=== PATIENT | female | born 1980 | race Two or more races ===

== ENCOUNTER 2018-05-01 11:09 | Emergency (ER) | payer OTHER ==
[~2018-05-01] VITALS: Ht 154.9 cm; Wt 64.4 kg
[~2018-05-01 11:09] MED LIST: DAYQUIL; FEXO30TA; LORA10TA19
[2018-05-01 11:33] VITALS: BP 104/67
--- NOTE | 2018-05-01 11:37 | NUR ---
PT AMBULATES TO BED 11, REPORT GIVEN TO RAZIA MCKEON
--- NOTE | 2018-05-01 11:40 | NUR ---
C/O LT WRIST PAIN X 2 1/2 WKS S/P INJURED AT THE GYM. - SWELLING; CAP REFILL <3 SEC ON LEFT THUMB. VSS; PATIENT POSITIONED FOR COMFORT; HOB ELEVATED; BEDRAILS UP X1; BED DOWN. ER MD MADE AWARE OF PT STATUS.
--- NOTE | 2018-05-01 11:42 | NUR ---
XRAY AT BEDSIDE
[2018-05-01 11:59] VITALS: BP 104/67
== END 2018-05-01 11:55 | disposition home or self-care (01) ==
LOC: MED 11:09
DX: M67.834 Other specified disorders of tendon, left wrist (principal); Z79.899 Other long term (current) drug therapy
CPT/HCPCS: 73110; 99284; Q0092

== ENCOUNTER 2019-01-05 11:29 | Outpatient (CLI) | payer OTHER ==
[2019-01-05 12:19] LABS: FREE T4 (FREE THYROXINE) 1.25 ng/dL (0.76-1.46); THYROID STIMULATING HORMONE 3.74 uIU/mL (0.34-3.74)
== END 2019-01-05 21:08 | disposition home or self-care (01) ==
LOC: MLB 11:29
DX: E03.9 Hypothyroidism, unspecified (principal)
CPT/HCPCS: 36415; 84439; 84443; 84481

== ENCOUNTER 2019-02-06 12:03 | Outpatient (CLI) | payer OTHER ==
[2019-02-06 12:26] LABS: BASOPHILS % (AUTO) 0.6 % (0.0-2.0); EOSINOPHILS # (AUTO) 0.1 K/uL (0-0.4); EOSINOPHILS % (AUTO) 2.4 % (0.0-4.0); HEMATOCRIT 37.6 % (36-48); HEMOGLOBIN 12.5 g/dL (12.0-16.0); LYMPHOCYTES # (AUTO) 2.3 K/uL (2.5-16.5); LYMPHOCYTES % (AUTO) 52.5 % (20.5-51.1); MEAN CORPUSCULAR HEMOGLOBIN 27 pg (27-31); MEAN CORPUSCULAR HGB CONC 33 g/dL (33-37); MEAN CORPUSCULAR VOLUME 81.2 fL (80-94); MONOCYTES # (AUTO) 0.4 K/uL (0.8-1.0); MONOCYTES % (AUTO) 9.5 % (1.7-9.3); NEUTROPHILS # (AUTO) 1.5 K/uL (1.8-7.7); PLATELET COUNT (AUTO) 249 K/uL (140-450); RED BLOOD CELL COUNT(AUTO) 4.64 MIL/uL (4.20-5.40); RED CELL DISTRIBUTION WIDTH 15.2 % (11.6-13.7); WHITE BLOOD COUNT (AUTO) 4.3 K/uL (4.8-10.8)
[2019-02-06 12:47] LABS: THYROID STIMULATING HORMONE 2.07 uIU/mL (0.34-3.74)
[2019-02-07 09:12] LABS: ESTRADIOL SERUM 42.1 pg/mL (.); FOLLICLE STIMULATING HORMONE 6.1 mIU/mL (.); LUTEINIZING HORMONE 18.8 mIU/mL (.); PROLACTIN 10.6 ng/mL (4.8-23.3)
== END 2019-02-06 22:39 | disposition home or self-care (01) ==
LOC: MLB 12:03
DX: E28.2 Polycystic ovarian syndrome (principal); E03.9 Hypothyroidism, unspecified
CPT/HCPCS: 36415; 76536; 80061; 82533; 82670; 83001; 83002; 83036; 83498; 83516; 83525; 84144; 84146; 84403; 84443; 85025; Q0092

== ENCOUNTER 2019-02-24 14:08 | Outpatient (CLI) | payer OTHER | END 2019-02-24 20:12 | disposition home or self-care (01) | LOC: MUS 14:08 | DX: E28.2 Polycystic ovarian syndrome (principal) | CPT/HCPCS: 76856; Q0092 ==

== ENCOUNTER 2019-05-07 12:17 | Outpatient (CLI) | payer OTHER ==
[2019-05-07 13:10] LABS: ALBUMIN 3.9 g/dL (3.4-5.0); ANION GAP 14.9 (8-16); CARBON DIOXIDE 25.8 mmol/L (21-32); CREATININE 0.8 mg/dL (0.6-1.3); FREE T4 (FREE THYROXINE) 1.27 ng/dL (0.76-1.46); POTASSIUM 3.7 mmol/L (3.5-5.1); THYROID STIMULATING HORMONE 1.2 uIU/mL (0.34-3.74); TOTAL BILIRUBIN 0.3 mg/dL (0.0-1.0)
[2019-05-08 09:08] LABS: THYROID PEROXIDASE (TPO) AB 63 IU/mL (0-34); TRIIODOTHYRONINE 90 ng/dL (71-180)
== END 2019-05-07 17:10 | disposition home or self-care (01) ==
LOC: MLB 12:17
DX: E04.2 Nontoxic multinodular goiter (principal); E06.3 Autoimmune thyroiditis
CPT/HCPCS: 36415; 80053; 84439; 84443; 84480; 86376; 86800

== ENCOUNTER 2019-08-05 16:00 | Outpatient (CLI) | payer OTHER | END 2019-08-05 19:52 | disposition home or self-care (01) | LOC: MLB 16:00 | DX: E07.9 Disorder of thyroid, unspecified (principal) | CPT/HCPCS: 36415; 86800 ==

== ENCOUNTER 2019-09-10 11:10 | Outpatient (CLI) | payer OTHER ==
[2019-09-10 12:06] LABS: BASOPHILS % (AUTO) 0.9 % (0.0-2.0); EOSINOPHILS # (AUTO) 0.1 K/uL (0-0.4); EOSINOPHILS % (AUTO) 2.5 % (0.0-4.0); HEMATOCRIT 39.6 % (36-48); LYMPHOCYTES # (AUTO) 1.2 K/uL (2.5-16.5); LYMPHOCYTES % (AUTO) 27.7 % (20.5-51.1); MEAN CORPUSCULAR HEMOGLOBIN 27 pg (27-31); MEAN CORPUSCULAR HGB CONC 33 g/dL (33-37); MEAN CORPUSCULAR VOLUME 81.2 fL (80-94); MONOCYTES # (AUTO) 0.4 K/uL (0.8-1.0); MONOCYTES % (AUTO) 9.2 % (1.7-9.3); NEUTROPHILS # (AUTO) 2.6 K/uL (1.8-7.7); NEUTROPHILS % (AUTO) 59.7 % (42.2-75.2); PLATELET COUNT (AUTO) 223 K/uL (140-450); RED BLOOD CELL COUNT(AUTO) 4.87 MIL/uL (4.20-5.40); RED CELL DISTRIBUTION WIDTH 14.1 % (11.6-13.7); WHITE BLOOD COUNT (AUTO) 4.4 K/uL (4.8-10.8)
[2019-09-10 12:43] LABS: ALBUMIN 4.2 g/dL (3.4-5.0); BILIRUBIN,DIRECT 0.1 mg/dL (0.0-0.3); CHOL/HDL RATIO 4.3 (1-4.5); THYROID STIMULATING HORMONE 0.12 uIU/mL (0.34-3.74); TOTAL BILIRUBIN 0.4 mg/dL (0.0-1.0)
[2019-09-11 09:13] LABS: T4 (THYROXINE) 11.2 ug/dL (4.5-12.0)
[2019-09-11 10:06] LABS: T4 FREE (DIRECT) 2.31 ng/ml (0.82-1.77); THYROID STIM HORMONE-LABCORP 0.165 uIU/mL (0.45 - 4.50)
[2019-09-11 10:10] LABS: FOLIC ACID 19.5 ng/mL (>3.0)
== END 2019-09-10 19:52 | disposition home or self-care (01) ==
LOC: MLB 11:10
DX: Z00.00 Encounter for general adult medical examination without abnormal findings (principal)
CPT/HCPCS: 36415; 80076; 82306; 82607; 82672; 82728; 82746; 83036; 84144; 84402; 84403; 84436; 84439; 84443; 84479; 84480; 85025; 85651; 86140; 86376

== ENCOUNTER 2019-11-18 10:48 | Outpatient (CLI) | payer OTHER ==
[2019-11-19 06:07] LABS: T4 FREE (DIRECT) 1.71 ng/dL (0.82-1.77); THYROID PEROXIDASE (TPO) AB 17 IU/mL (0-34); TRIIODOTHYRONINE 115 ng/dL (71-180)
== END 2019-11-18 20:25 | disposition home or self-care (01) ==
LOC: MLB 10:48
DX: E89.0 Postprocedural hypothyroidism (principal)
CPT/HCPCS: 36415; 84439; 84443; 84480; 86376; 86800

== ENCOUNTER 2019-11-26 11:59 | Outpatient (CLI) | payer OTHER | END 2019-11-26 20:55 | disposition home or self-care (01) | LOC: MLB 11:59 | DX: C73 Malignant neoplasm of thyroid gland (principal); E04.1 Nontoxic single thyroid nodule; E66.3 Overweight; E03.9 Hypothyroidism, unspecified; E06.3 Autoimmune thyroiditis; C77.9 Secondary and unspecified malignant neoplasm of lymph node, unspecified; Z68.28 Body mass index [BMI] 28.0-28.9, adult | CPT/HCPCS: 36415; 84432; 86800 ==

== ENCOUNTER 2020-02-04 11:24 | Outpatient (CLI) | payer OTHER ==
[2020-02-04 12:34] LABS: BASOPHILS % (AUTO) 0.6 % (0.0-2.0); EOSINOPHILS # (AUTO) 0.1 K/uL (0-0.4); EOSINOPHILS % (AUTO) 2.1 % (0.0-4.0); HEMATOCRIT 37.3 % (36-48); HEMOGLOBIN 12.4 g/dL (12.0-16.0); LYMPHOCYTES # (AUTO) 1.7 K/uL (2.5-16.5); LYMPHOCYTES % (AUTO) 34.2 % (20.5-51.1); MEAN CORPUSCULAR HEMOGLOBIN 27 pg (27-31); MEAN CORPUSCULAR HGB CONC 33 g/dL (33-37); MEAN CORPUSCULAR VOLUME 82.8 fL (80-94); MONOCYTES # (AUTO) 0.5 K/uL (0.8-1.0); NEUTROPHILS # (AUTO) 2.6 K/uL (1.8-7.7); NEUTROPHILS % (AUTO) 53.1 % (42.2-75.2); PLATELET COUNT (AUTO) 251 K/uL (140-450); RED BLOOD CELL COUNT(AUTO) 4.51 MIL/uL (4.20-5.40); RED CELL DISTRIBUTION WIDTH 14.4 % (11.6-13.7)
[2020-02-04 13:15] LABS: BILIRUBIN,DIRECT 0.1 mg/dL (0.0-0.3); CARBON DIOXIDE 26.1 mmol/L (21-32); CHOL/HDL RATIO 3.8 (1-4.5); CREATININE 0.8 mg/dL (0.6-1.3); THYROID STIMULATING HORMONE 0.13 uIU/mL (0.34-3.74); TOTAL BILIRUBIN 0.3 mg/dL (0.0-1.0)
[2020-02-04 14:00] LABS: POTASSIUM 4.1 mmol/L (3.5-5.1)
[2020-02-05 09:10] LABS: FERRITIN 37 ng/mL (15-150); T4 (THYROXINE) 10.7 ug/dL (4.5-12.0); THYROID PEROXIDASE (TPO) AB <9 IU/mL (0-34); TRIIODOTHYRONINE 93 ng/dL (71-180)
== END 2020-02-04 21:34 | disposition home or self-care (01) ==
LOC: MLB 11:24
DX: E03.9 Hypothyroidism, unspecified (principal)
CPT/HCPCS: 36415; 80053; 80076; 82306; 82607; 82672; 82728; 82947; 83036; 84146; 84402; 84403; 84436; 84443; 84480; 85025; 85651; 86140; 86376; 86800

== ENCOUNTER 2020-04-11 10:22 | Outpatient (CLI) | payer OTHER ==
[2020-04-11 15:40] LABS: ALBUMIN 4.2 g/dL (3.4-5.0); ANION GAP 13.9 (8-16); CARBON DIOXIDE 25.9 mmol/L (21-32); CREATININE 0.9 mg/dL (0.6-1.3); POTASSIUM 3.8 mmol/L (3.5-5.1); THYROID STIMULATING HORMONE 0.03 uIU/mL (0.34-3.74); TOTAL BILIRUBIN 0.4 mg/dL (0.0-1.0)
[2020-04-12 09:43] LABS: T4 (THYROXINE) 11.4 ug/dL (4.5-12.0)
[2020-04-12 10:39] LABS: T4 FREE (DIRECT) 2.18 ng/ml (0.82-1.77)
== END 2020-04-11 21:32 | disposition home or self-care (01) ==
LOC: MLB 10:22
DX: C73 Malignant neoplasm of thyroid gland (principal); E03.9 Hypothyroidism, unspecified
CPT/HCPCS: 36415; 80053; 84432; 84436; 84439; 84443; 86800

== ENCOUNTER 2020-07-14 10:44 | Outpatient (CLI) | payer OTHER ==
[2020-07-14 11:40] LABS: ALBUMIN 4.2 g/dL (3.4-5.0); ANION GAP 17.5 (8-16); CARBON DIOXIDE 25.9 mmol/L (21-32); CREATININE 0.9 mg/dL (0.6-1.3); POTASSIUM 4.4 mmol/L (3.5-5.1); THYROID STIMULATING HORMONE 0.02 uIU/mL (0.34-3.74); TOTAL BILIRUBIN 0.4 mg/dL (0.0-1.0)
[2020-07-15 14:30] LABS: T4 FREE (DIRECT) 2.39 ng/ml (0.82-1.77)
== END 2020-07-14 21:00 | disposition home or self-care (01) ==
LOC: MLB 10:44
DX: C73 Malignant neoplasm of thyroid gland (principal); C77.9 Secondary and unspecified malignant neoplasm of lymph node, unspecified; E03.9 Hypothyroidism, unspecified; E06.3 Autoimmune thyroiditis; E04.1 Nontoxic single thyroid nodule
CPT/HCPCS: 36415; 80053; 84432; 84439; 84443; 86800

== ENCOUNTER 2020-07-21 14:00 | Outpatient (CLI) | payer OTHER ==
[2020-07-22 09:07] LABS: FOLLICLE STIMULATING HORMONE 1.8 mIU/mL (.)
== END 2020-07-21 20:06 | disposition home or self-care (01) ==
LOC: MLB 14:00
DX: E34.9 Endocrine disorder, unspecified (principal)
CPT/HCPCS: 36415; 82672; 83001; 83002

== ENCOUNTER 2020-08-16 11:01 | Outpatient (CLI) | payer OTHER | END 2020-08-16 20:21 | disposition home or self-care (01) | LOC: MLB 11:01 | DX: N92.6 Irregular menstruation, unspecified (principal) | CPT/HCPCS: 36415; 83516; 83525; 84403 ==

== ENCOUNTER 2020-09-30 10:27 | Outpatient (CLI) | payer OTHER ==
[2020-09-30 11:29] LABS: ALBUMIN 3.9 g/dL (3.4-5.0); ANION GAP 12.1 (8-16); CREATININE 0.8 mg/dL (0.6-1.3); POTASSIUM 4.1 mmol/L (3.5-5.1); THYROID STIMULATING HORMONE 0.02 uIU/mL (0.34-3.74); TOTAL BILIRUBIN 0.3 mg/dL (0.0-1.0)
[2020-10-01 15:07] LABS: FOLLICLE STIMULATING HORMONE 2.5 mIU/mL (.); LUTEINIZING HORMONE 7.3 mIU/mL (.)
[2020-10-01 18:59] LABS: PROLACTIN 31.2 ng/mL (4.8-23.3)
== END 2020-09-30 18:58 | disposition home or self-care (01) ==
LOC: MLB 10:27
DX: C73 Malignant neoplasm of thyroid gland (principal); C77.9 Secondary and unspecified malignant neoplasm of lymph node, unspecified; E03.9 Hypothyroidism, unspecified; E06.3 Autoimmune thyroiditis; E28.2 Polycystic ovarian syndrome; E04.1 Nontoxic single thyroid nodule
CPT/HCPCS: 36415; 80053; 82533; 83001; 83002; 84146; 84402; 84403; 84443

== ENCOUNTER 2020-11-25 09:32 | Outpatient (CLI) | payer OTHER ==
[2020-11-25 10:37] LABS: BASOPHILS % (AUTO) 0.9 % (0.0-2.0); EOSINOPHILS # (AUTO) 0.1 K/uL (0-0.4); EOSINOPHILS % (AUTO) 1.8 % (0.0-4.0); HEMATOCRIT 38.8 % (36-48); HEMOGLOBIN 12.6 g/dL (12.0-16.0); LYMPHOCYTES % (AUTO) 41.3 % (20.5-51.1); MEAN CORPUSCULAR HEMOGLOBIN 27 pg (27-31); MEAN CORPUSCULAR HGB CONC 33 g/dL (33-37); MEAN CORPUSCULAR VOLUME 82.5 fL (80-94); MONOCYTES # (AUTO) 0.5 K/uL (0.8-1.0); MONOCYTES % (AUTO) 10.7 % (1.7-9.3); NEUTROPHILS # (AUTO) 2.2 K/uL (1.8-7.7); NEUTROPHILS % (AUTO) 45.3 % (42.2-75.2); PLATELET COUNT (AUTO) 288 K/uL (140-450); RED CELL DISTRIBUTION WIDTH 15.2 % (11.6-13.7); WHITE BLOOD COUNT (AUTO) 4.8 K/uL (4.8-10.8)
[2020-11-26 09:06] LABS: HEPATITIS B SURFACE ANTIGEN Negative (Negative)
== END 2020-11-25 18:35 | disposition home or self-care (01) ==
LOC: MLB 09:32
DX: Z11.59 Encounter for screening for other viral diseases (principal); Z00.00 Encounter for general adult medical examination without abnormal findings
CPT/HCPCS: 36415; 82306; 83036; 85025; 86592; 86702; 86803; 86886; 86900; 86901; 87340; 87491

== ENCOUNTER 2021-01-27 10:25 | Outpatient (CLI) | payer OTHER | END 2021-01-27 20:44 | disposition home or self-care (01) | LOC: MLB 10:25 | PROVIDERS: ATTEND Obstetrics & Gynecology Reproductive Endocrinology | DX: C73 Malignant neoplasm of thyroid gland (principal); C77.9 Secondary and unspecified malignant neoplasm of lymph node, unspecified; E04.1 Nontoxic single thyroid nodule; E66.3 Overweight; E03.9 Hypothyroidism, unspecified; E06.3 Autoimmune thyroiditis; E28.2 Polycystic ovarian syndrome; Z68.29 Body mass index [BMI] 29.0-29.9, adult | CPT/HCPCS: 36415; 84146; 86886; 86900; 86901 ==

== ENCOUNTER 2021-03-17 11:07 | Outpatient (CLI) | payer OTHER | END 2021-03-17 20:21 | disposition home or self-care (01) | LOC: MLB 11:07 | PROVIDERS: ATTEND Obstetrics & Gynecology Reproductive Endocrinology | DX: Z00.00 Encounter for general adult medical examination without abnormal findings (principal); Z11.59 Encounter for screening for other viral diseases | CPT/HCPCS: 36415; 84146 ==

== ENCOUNTER 2021-05-02 10:58 | Outpatient (CLI) | payer OTHER ==
[2021-05-02 12:19] LABS: THYROID STIMULATING HORMONE 0.21 uIU/mL (0.34-3.74)
[2021-05-03 09:47] LABS: PROLACTIN 9.2 ng/mL (4.8-23.3)
== END 2021-05-02 20:12 | disposition home or self-care (01) ==
LOC: MLB 10:58
PROVIDERS: ATTEND Obstetrics & Gynecology Reproductive Endocrinology
DX: Z00.00 Encounter for general adult medical examination without abnormal findings (principal); Z11.59 Encounter for screening for other viral diseases
CPT/HCPCS: 36415; 83036; 84146; 84443; 86702

== ENCOUNTER 2021-09-12 09:37 | Outpatient (CLI) | payer OTHER ==
[2021-09-12 12:12] LABS: ALBUMIN 3.9 g/dL (3.4-5.0); ANION GAP 14.5 (8-16); CARBON DIOXIDE 24.5 mmol/L (21-32); CREATININE 0.8 mg/dL (0.6-1.3); TOTAL BILIRUBIN 0.4 mg/dL (0.0-1.0)
[2021-09-13 09:06] LABS: T4 (THYROXINE) 14.1 ug/dL (4.5-12.0); THYROID STIM HORMONE-LABCORP 0.068 uIU/mL (0.450-4.500)
== END 2021-09-12 19:25 | disposition home or self-care (01) ==
LOC: MLB 09:37
PROVIDERS: ATTEND Internal Medicine
DX: E03.9 Hypothyroidism, unspecified (principal)
CPT/HCPCS: 36415; 80053; 84432; 84436; 84443; 84479; 86800